=== PATIENT | female | born 1995 | race American Indian/Alaskan Native ===

== ENCOUNTER 2021-04-04 15:00 | Emergency (ER) | payer SELFPAY ==
[2021-04-04] MEDS ORDERED: LIDOCAINE-MPF (1%) 10 MG/1 ML VIAL 5 ML INFILTRATI ONE (18:30)
--- NOTE | 2021-04-04 18:42 | Emergency Department Report ---
ED Female HPI - General Chief complaint: Urogenital-Female Stated complaint: STD Source: patient Mode of arrival: Ambulatory Limitations: No Limitations - History of Present Illness Initial comments: 25-year-old -[place] female presents to the emergency room concern for STD. Patient states that she was told that she has been exposed to chlamydia. Patient does report of mild vaginal discharge vaginal irritation no vaginal bleeding no pelvic pain. Patient states she is had symptoms for greater than 2 weeks. MD Complaint: vaginal discharge, pelvic pain Onset/Timin -: week(s) Severity scale (0 -10): 1 Improves with: none Worsens with: none Are you Now?: No Associated Symptoms: denies other symptoms - Related Data Previous Rx's Medication Instructions Recorded Last Taken Type Doxycycline Hyclate [Doxycycline 100 mg PO Q12HR 10 Days #20 tab 04/04/21 Unknown Rx Hyclate TAB] Allergies Allergy/AdvReac Type Severity Reaction Status Date / Time No Known Allergies Allergy Verified 04/04/21 15:56 ED Review of Systems ROS: Stated complaint: STD Other details as noted in HPI Comment: All other systems reviewed and negative ED Past Medical Hx - Medications Home Medications: Home Medications Medication Instructions Recorded Confirmed Last Taken Type Doxycycline Hyclate [Doxycycline 100 mg PO Q12HR 10 Days #20 tab 04/04/21 Unknown Rx Hyclate TAB] ED Physical Exam - General Limitations: No Limitations General appearance: alert, in no apparent distress - Head Head exam: Present: atraumatic, normocephalic - Eye Eye exam: Present: normal appearance - ENT ENT exam: Present: mucous membranes moist - Neck Neck exam: Present: normal inspection - Respiratory Respiratory exam: Present: normal lung sounds bilaterally. Absent: respiratory distress - Cardiovascular Cardiovascular Exam: Present: regular rate, normal rhythm. Absent: systolic murmur, diastolic murmur, rubs, gallop - GI/Abdominal GI/Abdominal exam: Present: soft, normal bowel sounds - Extremities Exam Extremities exam: Present: normal inspection - Back Exam Back exam: Present: normal inspection - Neurological Exam Neurological exam: Present: alert, oriented X3 - Psychiatric Psychiatric exam: Present: normal affect, normal mood - Skin Skin exam: Present: warm, dry, intact, normal color. Absent: rash ED Course Vital Signs 04/04/21 15:54 Temperature 98.9 F Pulse Rate 65 O2 Sat by Pulse 99 Oximetry ED Medical Decision Making - Medical Decision Making 25-year-old -[place] female presents to the emergency room concern for STD. Patient states that she was told that she has been exposed to chlamydia. Patient does report of mild vaginal discharge vaginal irritation no vaginal bleeding no pelvic pain. Patient states she is had symptoms for greater than 2 weeks. Patient will be treated for gonorrhea and chlamydia instructed patient to follow-up at the health department or primary care or [facility] for full STD evaluation. Patient verbalized understanding. Critical care attestation.: If time is entered above; I have spent that time in minutes in the direct care of this critically ill patient, excluding procedure time. ED Disposition Clinical Impression: Concern about STD in female without diagnosis Disposition: HOME / SELF CARE / HOMELESS Is pt being admited?: No Does the pt Need Aspirin: No Condition: Stable Instructions: Chlamydia, Female, [id number], Safe Sex Additional Instructions: Complete medication. Refrain from intercourse for 2 weeks. Get tested for all STD. Prescriptions: Doxycycline Hyclate [Doxycycline Hyclate TAB] 100 mg PO Q12HR 10 Days #20 tab [facility] - 3-5 Days [facility] [Outside] - 3-5 Days [facility] [Provider Group] - 3-5 Days Forms: Work/School Release Form(ED) Time of Disposition: 18:33
[2021-04-04 19:33] VITALS: BP 126/66
== END 2021-04-04 19:31 | disposition home or self-care (01) ==
LOC: ED 15:00
DX: N89.8 Other specified noninflammatory disorders of vagina (principal)
CPT/HCPCS: 96372; 99282; J0696; J3490